=== PATIENT | male | born 1935 | race Caucasian/White ===

== ENCOUNTER 2020-01-05 11:20 | Emergency (ER) | payer OTHER ==
[~2020-01-05] VITALS: Ht 160 cm; Wt 52.2 kg
[~2020-01-05 11:20] MED LIST: ALBU0.0912 INH; ORE25 PO
--- NOTE | 2020-01-05 11:35 | NUR ---
PT AMB TO ER BED 5 WITH FAMILY AT BEDSIDE.
[2020-01-05 11:38] VITALS: BP 149/63
--- NOTE | 2020-01-05 11:40 | NUR ---
84 YO M BIB DAUGHTER C/O PRODUCTIVE COUGH AND FEVER X 2 WEEKS. PT SOUGHT CONSULT WITH MD, PRESCRIBED WITH BENZONATATE, AZITHROMYCIN AND OSELTAMIVIR WHICH PROVIDED NO RELIEF. DENIES RUNNY NOSE, N/V/D. IN ER, VSS. CRACKLES HEARD ON ALL LUNG GARCIA. PT NOT IN DISTRESS. PT POSITIONED COMFORTABLY IN BED. ERMD MADE AWARE. PMH: HTN, ASTHMA MEDS: VENTOLIN, ASPIRIN, LOSARTAN NKA
[2020-01-05] MEDS: IPRATROPIUM 0.02% 0.5 MG/2.5 ML NEBU INH ONE (12:23)
[2020-01-05] MEDS: ALBUTEROL 0.083% 2.5 MG/3 ML NEBU INH ONE (12:23)
[2020-01-05 12:49] LABS: APPEARANCE,URINE CLEAR (CLEAR); BILIRUBIN,URINE NEGATIVE (NEGATIVE); BLOOD, URINE NEGATIVE (NEGATIVE); COLOR,URINE YELLOW (YELLOW); LEUKOCYTE ESTERASE ,URINE NEGATIVE (NEGATIVE); NITRITE, URINE NEGATIVE (NEGATIVE); UGLUCOSE NEGATIVE (NEGATIVE)
[2020-01-05] MEDS: methylPREDNISolone SS 125 MG/2 ML VIAL IVP ONE (12:54)
[2020-01-05 12:55] LABS: BASOPHILS % (AUTO) 0.3 % (0.0-2.0); EOSINOPHILS # (AUTO) 0.1 K/uL (0-0.4); EOSINOPHILS % (AUTO) 0.9 % (0.0-4.0); HEMATOCRIT 46.3 % (36-52); HEMOGLOBIN 15.2 g/dL (12.0-18.0); LYMPHOCYTES % (AUTO) 23.4 % (20.5-51.1); MEAN CORPUSCULAR HEMOGLOBIN 28 pg (27-31); MEAN CORPUSCULAR HGB CONC 33 g/dL (33-37); MEAN CORPUSCULAR VOLUME 84.5 fL (80-94); MONOCYTES # (AUTO) 0.7 K/uL (0.8-1.0); MONOCYTES % (AUTO) 8.3 % (1.7-9.3); NEUTROPHILS # (AUTO) 5.7 K/uL (1.8-7.7); NEUTROPHILS % (AUTO) 67.1 % (42.2-75.2); PLATELET COUNT (AUTO) 280 K/uL (140-450); RED BLOOD CELL COUNT(AUTO) 5.48 MIL/uL (4.20-6.10); RED CELL DISTRIBUTION WIDTH 14.5 % (11.6-13.7); WHITE BLOOD COUNT (AUTO) 8.5 K/uL (4.8-10.8)
[2020-01-05] MEDS: NACL 0.9% 1,000 ML IV SCH (12:55)
[2020-01-05 13:05] LABS: ALBUMIN 3.6 g/dL (3.4-5.0); ANION GAP 11.2 (8-16); ASPARTATE AMINOTRANSFERASE 23 U/L (15-37); CARBON DIOXIDE 29.9 mmol/L (21-32); CHLORIDE 101 mmol/L (98-107); CREATININE 0.6 mg/dL (0.6-1.3); GLUCOSE 104 mg/dL (74-106); POTASSIUM 4.1 mmol/L (3.5-5.1); SODIUM SERUM 138 mmol/L (136-145); TOTAL BILIRUBIN 0.5 mg/dL (0.0-1.0); UREA NITROGEN, BLOOD 14 mg/dL (7-18)
[2020-01-05 15:08] VITALS: BP 149/63
--- NOTE | 2020-01-05 15:09 | NUR ---
Patient discharged with v/s stable. Written and verbal after care instructions given and explained. Patient alert, oriented and verbalized understanding of instructions. Ambulatory with steady gait. All questions addressed prior to discharge. ID band removed. Patient advised to follow up with PMD. Rx of PREDNISONE, PROMETHAZINE given. Patient educated on indication of medication including possible reaction and side effects. Opportunity to ask questions provided and answered.
[2020-01-06] MEDS ORDERED: PROMETHAZINE DM PO (22:25)
[2020-01-06] MEDS ORDERED: PRED20TA5 PO (22:25)
[2020-01-06] MEDS ORDERED: ASPI-1822 PO (22:25)
[2020-01-06] MEDS ORDERED: LOSA25TA43 PO (22:25)
== END 2020-01-05 15:09 | disposition home or self-care (01) ==
LOC: MED 11:20
DX: B34.9 Viral infection, unspecified (principal); J45.909 Unspecified asthma, uncomplicated; I10 Essential (primary) hypertension; Z79.899 Other long term (current) drug therapy
CPT/HCPCS: 36415; 71045; 80053; 81003; 83605; 83880; 84484; 85025; 87040; 87086; 87804; 93005; 94640; 96374; 99284; J2930; J7030; J7613; J7644; Q0092

== ENCOUNTER 2020-01-06 22:05 | Emergency (ER) | payer OTHER ==
[~2020-01-06] VITALS: Ht 152.4 cm; Wt 67.1 kg
[2020-01-06 22:07] VITALS: BP 175/100
--- NOTE | 2020-01-06 22:07 | NUR ---
PT W/C ASSISTED TO ER BED 10
--- NOTE | 2020-01-06 22:08 | NUR ---
84 YEAR OLD MALE BROUGHT IN BY DAUGHTER, DAUGHTER STATES PT SEEMED THOUGH HE HAD SHORTNESS OF BREATHE SINCE MORNING WITH A COUGH. PATIENT WITH VISIBLE RIGHT SIDED DROOP ON FACE. PATIENT WITH WEAKNESS IN RIGHT ARM AND RIGHT LEG. DAUGHTER STATES THE FACIAL DROOP HAPPENED YESTERDAY AT 10PM, AND THAT THE RIGHT ARM AND LEG WEAKNESS WAS NOTICED TODAY AT 5PM. PATIENT AOX0, FOLLOWS COMMANDS. GCS 11 (E4,V1,M6) PATIENT BREATHING EVEN AND UNLABORED, SKIN WARM AND DRY. BED IN LOWEST POSITION, LOCKED, BED RAIL UPX2. DR JIMENEZ MADE AWARE OF SITUATION IMMEDIATELY. ASSESSMENT PERFORMED WITH NIGERIEN TRANSLATION. PMH - ASTHMA ALLERGIES - NKA
--- NOTE | 2020-01-06 22:20 | NUR ---
Dr. Wright examining patient.
--- NOTE | 2020-01-06 22:24 | NUR ---
[facility] CALLED FOR STAT HEAD CT
[2020-01-06] MEDS ORDERED: LOSA25TA43 PO (22:25)
[2020-01-06] MEDS ORDERED: PRED20TA5 PO (22:25)
[2020-01-06] MEDS ORDERED: ASPI-1822 PO (22:25)
[2020-01-06] MEDS ORDERED: PROMETHAZINE DM PO (22:25)
--- NOTE | 2020-01-06 22:33 | NUR ---
PT TAKEN TO CT
[2020-01-06 22:47] LABS: BASOPHILS # (AUTO) 0.1 K/uL (0.00-0.22); BASOPHILS % (AUTO) 0.9 % (0.0-2.0); EOSINOPHILS % (AUTO) 0.1 % (0.0-4.0); HEMATOCRIT 46.5 % (36-52); HEMOGLOBIN 15.8 g/dL (12.0-18.0); LYMPHOCYTES # (AUTO) 1.6 K/uL (2.0-11.5); LYMPHOCYTES % (AUTO) 9.9 % (20.5-51.1); MEAN CORPUSCULAR HEMOGLOBIN 28 pg (27-31); MEAN CORPUSCULAR HGB CONC 34 g/dL (33-37); MEAN CORPUSCULAR VOLUME 82.9 fL (80-94); MONOCYTES % (AUTO) 6.7 % (1.7-9.3); NEUTROPHILS # (AUTO) 12.9 K/uL (1.8-7.7); NEUTROPHILS % (AUTO) 82.4 % (42.2-75.2); PLATELET COUNT (AUTO) 305 K/uL (140-450); RED BLOOD CELL COUNT(AUTO) 5.61 MIL/uL (4.20-6.10); RED CELL DISTRIBUTION WIDTH 14.4 % (11.6-13.7); WHITE BLOOD COUNT (AUTO) 15.7 K/uL (4.8-10.8)
--- NOTE | 2020-01-06 23:00 | NUR ---
PATIENT ALERT AND AWAKE, BREATHING EVEN AND UNLABORED, DAUGHTER AT BEDSIDE
[2020-01-06 23:13] LABS: ANION GAP 10.2 (8-16); ASPARTATE AMINOTRANSFERASE 34 U/L (15-37); CARBON DIOXIDE 29.6 mmol/L (21-32); CHLORIDE 102 mmol/L (98-107); CREATININE 0.8 mg/dL (0.6-1.3); GLUCOSE 125 mg/dL (74-106); POTASSIUM 3.8 mmol/L (3.5-5.1); SODIUM SERUM 138 mmol/L (136-145); TOTAL BILIRUBIN 0.5 mg/dL (0.0-1.0); UREA NITROGEN, BLOOD 16 mg/dL (7-18)
[2020-01-06 23:26] LABS: ALBUMIN 3.9 g/dL (3.4-5.0)
--- NOTE | 2020-01-07 | NUR ---
PATIENT ALERT AND AWAKE, BREATHING EVEN AND UNLABORED
--- NOTE | 2020-01-07 01:00 | NUR ---
PATIENT AND DAUGHTER GIVEN UPDATE THAT INSURANCE WILL NOT ALLOW TRANSFER UNTIL 8AM, DR JIMENEZ ALREADY AWARE
--- NOTE | 2020-01-07 01:02 | NUR ---
PATIENT O2 DROPPING CONSISTENTLY TO 92%, PLACED ON 2L NC. DR JIMENEZ MADE AWARE. O2 SATURATION 96%.
[2020-01-07] MEDS ORDERED: ALBUTEROL SULFATE/IPRATROPIU 3 ML SOL IH ONE (01:15)
[2020-01-07] MEDS ORDERED: ALBUTEROL 0.083% 2.5 MG/3 ML NEBU INH ONE (01:15)
--- NOTE | 2020-01-07 02:00 | NUR ---
Daniel sher in [facility] - 01/07/20 at 0353 by MEDJJ PATIENT RESTING WITH EYES CLOSED, BREATHING EVEN AND UNLABORED
--- NOTE | 2020-01-07 02:00 | NUR ---
PATIENT RESTING WITH EYES CLOSED, BREATHING EVEN AND UNLABORED
--- NOTE | 2020-01-07 03:00 | NUR ---
PATIENT RESTING WITH EYES CLOSED, BREATHING EVEN AND UNLABORED
[2020-01-07] MEDS ORDERED: ENALAPRILAT 2.5 MG/2 ML VIAL IVP ONE (05:55)
--- NOTE | 2020-01-07 05:55 | NUR ---
PATIENT BP WAS 191/102, DR JIMENEZ MADE AWARE
--- NOTE | 2020-01-07 06:00 | NUR ---
REPEAT BP DONE, BP 164/89. DR JIMENEZ STATES TO HOLD ORDER FOR VASOTEC
--- NOTE | 2020-01-07 07:10 | NUR ---
REPORT FROM RAMONA ALMONTE. ASSUMED CARE OF PT.
--- NOTE | 2020-01-07 08:10 | NUR ---
PT FOUND ATTEMPTING TO GET OUT OF BED. REDIRECTED INTO BED. CURTAIN OPEN FOR CLOSE OBSERVATION.
--- NOTE | 2020-01-07 09:22 | NUR ---
REPORT TO RAMONA FERNANDEZ. ALL CARE TRANSFERRED.
--- NOTE | 2020-01-07 09:23 | NUR ---
REPORT RECEIVED FROM RAMONA SORIA. TRANSFERED CARE AT THIS TIME.
--- NOTE | 2020-01-07 10:21 | NUR ---
PT IS LYING IN THE BED. VSS. ON MONITOR.
--- NOTE | 2020-01-07 12:02 | NUR ---
PT IS RESTING IN THE BED. VSS. ON MONITOR.
--- NOTE | 2020-01-07 12:57 | NUR ---
DAUGHTER IS AT BEDSIDE. SWALLOW TEST IMPLEMENTED. PT IS ABLE TO DRINK JUICE, THICKNER LIQUID PROVIDED.
--- NOTE | 2020-01-07 13:36 | NUR ---
TRIED TO GIVE REPORT TO [facility] ER, BUT NO ONE IS AVAILABLE TO RECEIVE THE REPORT. WILL CALL LATER.
--- NOTE | 2020-01-07 13:55 | NUR ---
Patient to be transferred to [facility] ER. Is being transferred due to high level of care. Receiving facility has accepting physician and available space. ER physician has signed transfer form. Patient or responsible democrat has agreed to transfer and signed form. Patient belongings inventoried and will be sent with patient. Copy of nursing notes, lab reports, EKG, Physicians Orders and X-rays to be sent with patient. Report called to RAMONA Finch at receiving facility. [facility] ambulance service has been called for transfer. ETA is 15 mins.
--- NOTE | 2020-01-07 13:56 | NUR ---
KARLA at bedside for transport to [facility] room # 356-B.
--- NOTE | 2020-01-07 14:13 | NUR ---
[facility] IS TRANSFERRING PT TO [facility] AT BEDSIDE NOW.
[2020-01-07 14:14] VITALS: BP 135/68
== END 2020-01-07 14:13 | disposition short-term general hospital (02) ==
LOC: MED 22:05
DX: I63.9 Cerebral infarction, unspecified (principal); J45.909 Unspecified asthma, uncomplicated; R53.1 Weakness; I10 Essential (primary) hypertension; Z79.899 Other long term (current) drug therapy
CPT/HCPCS: 36415; 70450; 80053; 82948; 84484; 85025; 93005; 94640; 99285; J7613